=== PATIENT | female | born 1995 | race Two or more races ===

== ENCOUNTER 2018-08-09 19:45 | Emergency (ER) | payer MEDICAID ==
[~2018-08-09] VITALS: Ht 152.4 cm; Wt 54.4 kg
--- NOTE | 2018-08-09 20:10 | NUR ---
BIB FAMILY FOR C/O DIFFICULTY BREATHING, NAUSEA AND DIZZINESS, HOLDING O2 SATURATION OF 100% ON R/A. APPEARS ANXIOUS. PLACED ON A MONITOR . VSS. WILL CONT TO MONITOR ,
[2018-08-09] MEDS ORDERED: ONDANSETRON HCL/PF 4 MG/2 ML VIAL IVP ONE (20:30)
[2018-08-09] MEDS ORDERED: IV NS 0.9% 1,000 ML BAG IV ONE (20:30)
[2018-08-09] MEDS ORDERED: LORAZEPAM INJ 2 MG/ML VIAL IV ONE (20:30)
[2018-08-09] MEDS ORDERED: KETOROLAC TROMETHAMINE INJ 30 MG/ML VIAL IV ONE (20:30)
--- NOTE | 2018-08-09 20:40 | NUR ---
PT HAS NO MEDICAL INSURANCE. PT AND FAMILY WILL DISCUSS THEIR SITUATION WITH ADMITTNG AND WILL DECIDE IF THEY WANT TO PROCCED WITH THE TREATMENT.
[2018-08-09] MEDS ORDERED: KETOROLAC TROMETHAMINE 15 MG/ML VIAL ONE (21:14)
[2018-08-09] MEDS ORDERED: ONDANSETRON HCL/PF 4 MG/2 ML VIAL ONE (21:14)
[2018-08-09] MEDS ORDERED: LORAZEPAM INJ 2 MG/ML VIAL ONE (21:15)
--- NOTE | 2018-08-09 21:29 | NUR ---
PT APPROVED FOR EMERGENCY MEDICAL . PT MEDICATED ORDERED PER FAMILY/ PT WISH
[2018-08-09 22:25] LABS: BASOPHILS # (AUTO) 0.1 /CMM (0.0-0.2); BASOPHILS % (AUTO) 0.5 % (0.0-2.0); EOSINOPHILS % (AUTO) 0.7 % (0.0-6.0); HEMATOCRIT 41 % (33-45); HEMOGLOBIN 13.6 g/dL (11.5-14.8); LYMPHOCYTES # (AUTO) 1.6 /CMM (0.8-4.8); LYMPHOCYTES % (AUTO) 11.3 % (20.0-44.0); MEAN CORPUSCULAR HGB CONC 33 g/dl (31.0-36.0); MEAN CORPUSCULAR VOLUME 92 fL (82-100); MONOCYTES # (AUTO) 0.6 /CMM (0.1-1.30); MONOCYTES % (AUTO) 4.4 % (2.0-12.0); NEUTROPHILS # (AUTO) 11.5 /CMM (1.8-8.9); NEUTROPHILS % (AUTO) 83.1 % (43.0-81.0); PLATELET COUNT (AUTO) 317 /CMM (150-450); RED BLOOD CELL COUNT(AUTO) 4.45 MIL/uL (4.0-5.2); WHITE BLOOD COUNT (AUTO) 13.9 K/uL (4.3-11.0)
--- NOTE | 2018-08-09 22:31 | NUR ---
PT WAS ASSISTED TO THE BATHROOM BUT UNABLE TO PROVIDE URINE SAMPLE. PT WOULD LIKE TO HAVE THE TEST RESULT PRIOR TO RECEIVING THE TORADOL ALTHOUGH SHE IS CURRENTLY ON HER MESTRUAL PERIOD. PT REPORTED NO PAIN AT THIS TIME BUT STILL RMAINED WEAK. VSS. WILL CONT TO MONITOR ,
[2018-08-09 22:40] LABS: CALCIUM, SERUM 9.3 mg/dL (8.5-10.1); CREATININE 0.7 mg/dL (0.6-1.3); POTASSIUM 3.4 mmol/L (3.5-5.1)
[2018-08-09 22:46] LABS: ALBUMIN 4.3 g/dL (3.4-5.0); BILIRUBIN,DIRECT 0.1 mg/dL (0.0-0.2); BILIRUBIN,TOTAL 0.3 mg/dL (0.2-1.0); TOTAL PROTEIN, SERUM 8.2 g/dL (6.4-8.2)
--- NOTE | 2018-08-09 23:38 | NUR ---
Patient discharged to home in stable condition. Rx & Written and verbal after care instructions given. Patient verbalizes understanding of instruction.
[2018-08-10 00:28] VITALS: BP 97/53
== END 2018-08-09 23:40 | disposition home or self-care (01) ==
LOC: ER 19:45
DX: R10.2 Pelvic and perineal pain (principal); R11.2 Nausea with vomiting, unspecified; Z88.6 Allergy status to analgesic agent
CPT/HCPCS: 36415; 76856; 80048; 80076; 83690; 85025; 96361; 96374; 96375; 99284; J2060; J2405; J7030; J1885